=== PATIENT | male | born 1935 | race Hispanic/Latino ===

== ENCOUNTER 2017-05-18 11:25 | Day surgery (SDC) | payer MEDICARE ==
[2017-05-18 12:29] VITALS: BMI 32.5
[2017-05-18] MEDS ORDERED: Lidocaine 1% Inj (20ml) ONE (14:16)
--- NOTE | 2017-05-18 14:23 | CP.SDSHP ---
Same Day Surgery H & P - History Proposed Procedure: US guided paracentesis. Pre-Op Diagnosis: Ascites - Allergies Allergies: Allergies No Known Allergies Allergy (Verified 05/18/17 12:29) - Physical Exam Vital Signs: Vital Signs 05/18/17 12:15 Temperature 97.8 F Pulse Rate 79 Respiratory 20 Rate O2 Sat by Pulse 95 Oximetry Mental Status: Alert & Oriented x3 - Impression Impression: Pt with ascites referred for US guided paracentesis. Pt. Evaluated Today:Candidate for Anesthesia & Procedure: No - Date & Time Date: 05/18/17 Time: 14:20 Short Stay Discharge - Short Stay Discharge Admitting Diagnosis/Reason for Visit: ASCITES Referrals: Mo Way MD [Primary Care Provider] - Progress Note/Discharge Note with Instructions: s/p paracentesis. There were no complications.
--- NOTE | 2017-05-18 14:24 | PCM.SURG1 ---
Surgeon's Initial Post Op Note - Surgeon's Notes Surgeon: Evgeny Swann MD [employer] Department Manager: None Type of Anesthesia: Local Pre-Operative Diagnosis: Ascites Operative Findings: US showed a moderate amount of ascites Post-Operative Diagnosis: Ascites Operation Performed: US guided paracentesis. Specimen/Specimens Removed: 5.2 Liters of straw colored fluid Estimated Blood Loss: EBL {In ML}: 0 Blood Products Given: N/A Drains Used: No Drains Post-Op Condition: Good Date of Surgery/Procedure: 05/18/17 Time of Surgery/Procedure: 14:45
[2017-05-18 14:25] VITALS: RESP 18
[2017-05-18 15:11] VITALS: BP 149/91; PULSE 76; TEMP 98.2; O2SAT 97
--- NOTE | 2017-05-20 10:36 | US ---
Date of Procedure: 05/18/2017 PROCEDURE: Ultrasound-guided paracentesis, CPT 16198 Medications: 7 cc 1% Lidocaine HISTORY: Ascites, abdominal pain, cirrhosis TECHNIQUE: Following informed consent , the patient was placed supine on the stretcher and the site was marked. A limited abdominal ultrasound was performed that showed a large amount of intra-abdominal fluid. Procedural time out was called and the Pt's abdomen was marked and prepped and draped in the usual sterile fashion. Ultrasound-guided large volume paracentesis performed. A total of 8 liters of straw colored fluid was removed without complication. IMPRESSION: Ultrasound-guided large volume paracentesis.
== END 2017-05-18 15:50 | disposition home or self-care (01) ==
LOC: H.OPSURG 11:25
PROVIDERS: ATTEND Internal Medicine Gastroenterology
DX: R18.8 Other ascites (principal); K74.60 Unspecified cirrhosis of liver
CPT/HCPCS: 49083; 82948; C1729

== ENCOUNTER 2017-09-04 17:42 | Inpatient (IN) | payer MEDICARE ==
[2017-09-04 17:42] VITALS: BMI 32.5
[2017-09-04 19:07] LABS: PARTIAL THROMBOPLASTIN TIME 27.8 Seconds (25.6-37.1)
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
[2017-09-04 19:23] LABS: BASO # 0.2 K/uL (0.0-0.2); BASO % 1.3 % (0.0-2.0); EOS # 0.2 K/uL (0.0-0.7); EOS % 1.4 % (0.0-4.0); HEMATOCRIT 38.2 % (35.0-51.0); LYMPH # 2.1 K/uL (1.0-4.3); LYMPH % 14.6 % (20.0-40.0); MEAN CELL VOLUME 87.3 fl (80.0-94.0); MEAN CORPUSCULAR HEMOGLOBIN 28.6 pg (27.0-31.0); MEAN CORPUSCULAR HGB CONC 32.7 g/dL (33.0-37.0); MEAN PLATELET VOLUME 7.7 fl (7.2-11.7); MONO # 0.9 K/uL (0.0-0.8); MONO % 6.6 % (0.0-10.0); NEUT # 10.9 K/uL (1.8-7.0); NEUT % 76.1 % (50.0-75.0); RED CELL DISTRIBUTION WIDTH 15.5 % (11.5-14.5); WHITE BLOOD COUNT 14.2 K/uL (4.8-10.8)
--- NOTE | 2017-09-04 19:24 | ED PDOC ---
- Laboratory Results Result Diagrams: 09/04/17 19:19 09/04/17 19:19 - ECG O2 Sat by Pulse Oximetry: 99 (RA) Pulse Ox Interpretation: Normal Medical Decision Making Medical Decision Making: Time: 1899 --Patient was endorsed to provider by Dr. Regina Prasad. Pending reassessment. Time: 1999 --Labs: no clincial abnormality --CXR: no active disease noted --Discussed case with Dr. Shah, medical record assistant covering for Dr. Cavazos. --Patient placed on inpatient OBVS. Clinical Impression: Ascites; Dyspnea; COPD Scribe Attestation: Documented by Carey Ellsworth, acting as a scribe for Alfonso Garcia MD. Provider Scribe Attestation: All medical record entries made by the Scribe were at my direction and personally dictated by me. I have reviewed the chart and agree that the record accurately reflects my personal performance of the history, physical exam, medical decision making, and the department course for this patient. I have also personally directed, reviewed, and agree with the discharge instructions and disposition. Disposition Discussed With : Sanjana Ayon - Clinical Impression Clinical Impression: Ascites, COPD (chronic obstructive pulmonary disease), End stage liver disease - POA Present On Arrival: None - Disposition Disposition: Hospitalized as Observation Patient Disposition Time: 20:00 Condition: FAIR
[2017-09-04 19:37] LABS: ALB/GLOB RATIO 0.9 (1.0-2.1); ALKALINE PHOSPHATASE 238 U/L (38-126); ALT/SGPT 26 U/L (21-72); AST/SGOT 22 U/L (17-59); BILIRUBIN,TOTAL 0.4 mg/dl (0.2-1.3); BLOOD UREA NITROGEN 11 mg/dl (9-20); CALCIUM 8.9 mg/dL (8.4-10.2); CARBON DIOXIDE 28 mmol/L (22-30); CHLORIDE 99 mmol/L (98-107); GFR AFRICAN-AMERICAN > 60; GLUCOSE,RANDOM 363 mg/dL (75-110); POTASSIUM 4.2 MMOL/L (3.6-5.0); SODIUM 135 mmol/l (132-148); TOTAL PROTEIN 7.5 G/DL (6.3-8.2)
[2017-09-04] MEDS ORDERED: Glucagon Recombinant 1 mg Inj IM PRN (22:05)
[2017-09-04] MEDS ORDERED: Dextrose 50% SYRINGE Inj (50 ml) IV PRN (22:05)
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
[2017-09-04] MEDS ORDERED: Insulin Regular 100 units/ml ONE (22:57)
[2017-09-04] MEDS: Insulin Detemir 100 Units/ml Inj SC SCH (23:14)
[2017-09-04] MEDS: Fluticasone-Salmeterol 250-50mcg Diskus IH SCH (23:17)
[2017-09-05 07:16] LABS: BASO # 0.2 K/uL (0.0-0.2); BASO % 1.5 % (0.0-2.0); EOS # 0.2 K/uL (0.0-0.7); EOS % 1.4 % (0.0-4.0); HEMATOCRIT 37.3 % (35.0-51.0); LYMPH # 1.9 K/uL (1.0-4.3); LYMPH % 14.8 % (20.0-40.0); MEAN CELL VOLUME 86.5 fl (80.0-94.0); MEAN CORPUSCULAR HGB CONC 32.3 g/dL (33.0-37.0); MEAN PLATELET VOLUME 8.7 fl (7.2-11.7); MONO # 0.7 K/uL (0.0-0.8); MONO % 5.4 % (0.0-10.0); NEUT # 9.8 K/uL (1.8-7.0); NEUT % 76.9 % (50.0-75.0); NRBC % 0.1 % (0.0-0.0); RED CELL DISTRIBUTION WIDTH 14.9 % (11.5-14.5); WHITE BLOOD COUNT 12.8 K/uL (4.8-10.8)
[2017-09-05 07:31] LABS: BLOOD UREA NITROGEN 10 mg/dl (9-20); CALCIUM 8.5 mg/dL (8.4-10.2); CARBON DIOXIDE 31 mmol/L (22-30); CHLORIDE 98 mmol/L (98-107); GFR AFRICAN-AMERICAN > 60; GLUCOSE,RANDOM 274 mg/dL (75-110); POTASSIUM 3.7 MMOL/L (3.6-5.0); SODIUM 137 mmol/l (132-148)
[2017-09-05 07:53] LABS: URINE BILIRUBIN NEGATIVE (NEGATIVE); URINE BLOOD NEGATIVE (NEGATIVE); URINE COLOR COLORLESS (YELLOW); URINE GLUCOSE (UA) 50 mg/dL (Normal); URINE KETONE NEGATIVE (NEGATIVE); URINE LEUKOCYTE ESTERASE NEG Leu/uL (Negative); URINE PROTEIN NEGATIVE (NEGATIVE); URINE UROBILINOGEN 0.2-1.0 mg/dL (0.2-1.0); WBC URINE < 1 /hpf (0-5)
[2017-09-05] MEDS ORDERED: Enoxaparin 40 mg Syringe SC SCH (09:00)
[2017-09-05] MEDS: Insulin Regular 100 units/ml SC SCH ×4 (09:30→21:27)
[2017-09-05] MEDS: Fluticasone-Salmeterol 250-50mcg Diskus IH SCH ×2 (09:42→21:18)
[2017-09-05] MEDS: Insulin Detemir 100 Units/ml Inj SC SCH ×2 (09:44→14:27)
[2017-09-05] MEDS ORDERED: Albuterol-Ipratrop 3 mg / 0.5 (3 ml) UD INH STA (12:18)
--- NOTE | 2017-09-05 12:28 | CP.PCM.PN ---
Subjective - Date & Time of Evaluation Date of Evaluation: 09/05/17 Time of Evaluation: 11:20 - Subjective Subjective: 81 y/o M admitted for ascitis and SOB, seen at bedside in good spirits. He states he stopped taking his meds about 1 month ago. C/O SOB that has been progressively worsening and increased of abdominal girth, fatigue with exertion and orthopnea. Denies CP, palpitations, headache, abd pain, nausea or vomiting. Afebrile. Objective - Vital Signs/Intake and Output Vital Signs (last 24 hours): Temp Pulse Resp BP Pulse Ox 98.7 F 84 20 143/87 93 L 09/05/17 07:43 09/05/17 07:43 09/05/17 07:43 09/05/17 09:43 09/05/17 07:43 - Medications Medications: Current Medications Dextrose (Dextrose 50% Inj) 0 ml IV STAT PRN; Protocol PRN Reason: Hypoglycemia Protocol Dextrose (Glutose 15) 0 gm PO ONCE PRN; Protocol PRN Reason: Hypoglycemia Protocol Enoxaparin Sodium (Lovenox) 40 mg SC DAILY [facility] PRN Reason: Protocol Furosemide (Lasix) 40 mg PO DAILY [facility] Last Admin: 09/05/17 09:43 Dose: 40 mg Glucagon (Glucagen Diagnostic Kit) 0 mg IM STAT PRN; Protocol PRN Reason: Hypoglycemia Protocol Home Med (Dutasteride [Avodart]) 0.5 mg PO DAILY [facility] Insulin Detemir (Levemir) 8 units SC Q12H [facility] Last Admin: 09/05/17 09:44 Dose: 8 units Insulin Human Regular (Humulin R) 0 units SC ACHS [facility] PRN Reason: Protocol Last Admin: 09/05/17 09:30 Dose: Not Given Fluticasone/Salmeterol (Advair Diskus 250/50) 1 puff IH Q12 [facility] Last Admin: 09/05/17 09:42 Dose: 1 puff Spironolactone (Aldactone) 100 mg PO DAILY [facility] Last Admin: 09/05/17 09:43 Dose: 100 mg - Labs Labs: 09/05/17 05:30 09/05/17 06:30 PT 12.5 Seconds (9.8-13.1) 09/04/17 18:45 INR 1.1 (0.9-1.2) 09/04/17 18:45 APTT 27.8 Seconds (25.6-37.1) 09/04/17 18:45 - Constitutional Appears: Non-toxic - Eye Exam Eye Exam: EOMI - ENT Exam ENT Exam: Mucous Membranes Moist - Respiratory Exam Respiratory Exam: Wheezes (scattered diffuse wheezes ). absent: Accessory Muscle Use, Rales, Respiratory Distress - Cardiovascular Exam Cardiovascular Exam: REGULAR RHYTHM, +S1, +S2. absent: Gallop - GI/Abdominal Exam GI & Abdominal Exam: Distended, Normal Bowel Sounds. absent: Guarding, Tenderness, Rebound Additional comments: Increased abd girth. Increased skin vascularity. - Extremities Exam Extremities Exam: absent: Calf Tenderness, Pedal Edema - Neurological Exam Neurological Exam: Alert, Awake, Oriented x3 - Psychiatric Exam Psychiatric exam: Normal Affect, Normal Mood - Skin Skin Exam: Normal Color, Warm Assessment and Plan - Assessment and Plan (Free Text) Assessment: 81 y/o M with h/o Liver Cirrhosis, Ascitis, COPD, DM II being admitted with Ascitis and dyspnea. Ascites -Likely cirrhosis decompensation due to treatment noncompliant -SBP unlikely: Afebrile, no abd pain -WBC trending down -check I&O -measure weight daily -F/U abdominal US -C/W Furosemide 40 mg PO daily and Spironolactone 100 mg PO daily -GI consult appreciated, Dr. Marquez -IR consult appreciated for possible Paracentesis -Last peritoneal fluid analysis in 12/05/16: WBC 206 COPD exacerbation -Diffuse wheezes -SOB. CXR no active disease -Duoneb stat and q6h PRN -Advair diskus q12h Leukocytosis, mild -Unclear etiology -Improved -afebrile, no evidence of SBP at PExam -will monitor IDDM type II uncontrolled -f/u HgbA1C -Increased levemir 10 units BID -LDSS Regular insulin -accucheck ACHS -hypoglycemic protocol -diabetic diet DVT prophylaxis SCDs Lovenox 40 mg SC
--- NOTE | 2017-09-05 13:25 | RAD ---
PROCEDURE: CHEST RADIOGRAPH, 1 VIEW HISTORY: SOB COMPARISON: Comparison made with prior chest radiograph 12/03/2016. FINDINGS: LUNGS: Clear. PLEURA: No pneumothorax or pleural fluid seen. CARDIOVASCULAR: Heart size upper limits of normal. Aorta slightly ectatic and uncoiled. OSSEOUS STRUCTURES: No significant abnormalities. VISUALIZED UPPER ABDOMEN: Normal. OTHER FINDINGS: None. IMPRESSION: No active disease.
[2017-09-05] MEDS ORDERED: Albuterol-Ipratrop 3 mg / 0.5 (3 ml) UD INH PRN (14:33)
--- NOTE | 2017-09-05 17:04 | US ---
HISTORY: ascitis/Liver cirrhosis COMPARISON: Comparison made with CT scan of the abdomen and pelvis dated 12/04/2016. TECHNIQUE: Sonographic evaluation of the abdomen. FINDINGS: LIVER: Measures approximately 17 cm. Liver demonstrates nodular surface and heterogeneous echotexture suggesting hepatic cirrhosis. Small cyst again seen superior aspect right lobe liver measuring 1.3 cm in greatest diameter. Bidirectional flow within the portal vein Large amount of abdominal ascites present. GALLBLADDER: Gallbladder is physiologically distended. . No gallstones. No sonographic Reeder sign COMMON BILE DUCT: Measures 3 mm. No stones. No dilatation. PANCREAS: Poorly seen due to abdominal ascites RIGHT KIDNEY: Measures approximately 11.4 x 6.4 x 6.5cm. Normal echogenicity. No calculus, mass, or hydronephrosis. LEFT KIDNEY: Measures approximately 11.6 x 5.3 x 3.8cm. Normal echogenicity. No calculus, mass, or hydronephrosis. SPLEEN: Normal in size and contour. No mass. AORTA: Poorly seen due to abdominal ascites IVC: Poorly seen due to abdominal ascites. OTHER FINDINGS: None. IMPRESSION: Findings consistent with hepatic cirrhosis and large amount of abdominal ascites as detailed above. .
[2017-09-05] MEDS: Enoxaparin 40 mg Syringe SC SCH (21:16)
[2017-09-06] MEDS: Insulin Detemir 100 Units/ml Inj SC SCH ×2 (02:46→15:13)
[2017-09-06 06:58] LABS: BASO # 0.2 K/uL (0.0-0.2); BASO % 1.2 % (0.0-2.0); EOS # 0.1 K/uL (0.0-0.7); HEMATOCRIT 35.1 % (35.0-51.0); LYMPH # 2.1 K/uL (1.0-4.3); LYMPH % 15.9 % (20.0-40.0); MEAN CELL VOLUME 86.3 fl (80.0-94.0); MEAN CORPUSCULAR HEMOGLOBIN 28.6 pg (27.0-31.0); MEAN CORPUSCULAR HGB CONC 33.1 g/dL (33.0-37.0); MEAN PLATELET VOLUME 8.4 fl (7.2-11.7); MONO # 0.8 K/uL (0.0-0.8); MONO % 6.2 % (0.0-10.0); NEUT # 10.2 K/uL (1.8-7.0); NEUT % 75.7 % (50.0-75.0); RED CELL DISTRIBUTION WIDTH 14.9 % (11.5-14.5); WHITE BLOOD COUNT 13.4 K/uL (4.8-10.8)
[2017-09-06] MEDS: Insulin Regular 100 units/ml SC SCH ×4 (08:30→22:13)
[2017-09-06] MEDS: Enoxaparin 40 mg Syringe SC SCH (08:52)
[2017-09-06] MEDS: Fluticasone-Salmeterol 250-50mcg Diskus IH SCH ×2 (09:00→20:58)
--- NOTE | 2017-09-06 14:37 | CP.PCM.PN ---
Subjective - Date & Time of Evaluation Date of Evaluation: 09/06/17 Time of Evaluation: 10:00 - Subjective Subjective: Patient seen and examined at bedside with attending during morning rounds. He is lying in bed on his side and reports slight improvement in his dyspnea. He has been urinating frequently since resuming his diuretics and has noted slight improvement in his lower extremity edema and ascites. Patient does remain dyspneic however. He denies fevers, chills, chest pain, abdominal pain or vomiting. Objective - Vital Signs/Intake and Output Vital Signs (last 24 hours): Temp Pulse Resp BP Pulse Ox 98.2 F 78 20 134/71 89 L 09/06/17 07:38 09/06/17 07:38 09/06/17 07:38 09/06/17 08:52 09/06/17 07:38 - Medications Medications: Current Medications Albuterol/Ipratropium (Duoneb 3 Mg/0.5 Mg (3 Ml) Ud) 3 ml INH RQ6 PRN PRN Reason: Shortness of Breath Last Admin: 09/06/17 02:55 Dose: 3 ml Dextrose (Dextrose 50% Inj) 0 ml IV STAT PRN; Protocol PRN Reason: Hypoglycemia Protocol Dextrose (Glutose 15) 0 gm PO ONCE PRN; Protocol PRN Reason: Hypoglycemia Protocol Enoxaparin Sodium (Lovenox) 40 mg SC DAILY [facility] PRN Reason: Protocol Last Admin: 09/06/17 08:52 Dose: 40 mg Furosemide (Lasix) 40 mg PO DAILY [facility] Last Admin: 09/06/17 08:52 Dose: 40 mg Glucagon (Glucagen Diagnostic Kit) 0 mg IM STAT PRN; Protocol PRN Reason: Hypoglycemia Protocol Home Med (Dutasteride [Avodart]) 0.5 mg PO DAILY [facility] Insulin Detemir (Levemir) 10 units SC Q12H [facility] Last Admin: 09/06/17 02:46 Dose: 10 unit Insulin Human Regular (Humulin R) 0 units SC ACHS [facility] PRN Reason: Protocol Last Admin: 09/06/17 12:05 Dose: 5 units Fluticasone/Salmeterol (Advair Diskus 250/50) 1 puff IH Q12 [facility] Last Admin: 09/06/17 09:00 Dose: 1 puff Spironolactone (Aldactone) 100 mg PO DAILY [facility] Last Admin: 09/06/17 08:52 Dose: 100 mg - Labs Labs: 09/06/17 05:30 09/05/17 06:30 PT 12.5 Seconds (9.8-13.1) 09/04/17 18:45 INR 1.1 (0.9-1.2) 09/04/17 18:45 APTT 27.8 Seconds (25.6-37.1) 09/04/17 18:45 - Constitutional Appears: Non-toxic, No Acute Distress - Head Exam Head Exam: ATRAUMATIC, NORMAL INSPECTION - Eye Exam Eye Exam: EOMI, PERRL - ENT Exam ENT Exam: Mucous Membranes Moist - Respiratory Exam Respiratory Exam: Clear to Ausculation Bilateral, NORMAL BREATHING PATTERN. absent: Rales, Rhonchi, Wheezes, Respiratory Distress - Cardiovascular Exam Cardiovascular Exam: REGULAR RHYTHM, RRR, +S1, +S2, Murmur (Systolic grade II murmur) - GI/Abdominal Exam GI & Abdominal Exam: Distended, Soft, Normal Bowel Sounds. absent: Tenderness, Rebound Additional comments: Prominent abdominal ascites. Visible, non-distended veins on abdomen. - Extremities Exam Extremities Exam: Normal Capillary Refill. 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 Plan: Cirrhosis with Ascites -Likely decompensation secondary to medication non-adherence -SOB still present but improved from prior assessment -WBC trending down -Monitor I/O and continue daily weights -Continue Furosemide 40mg PO daily and Spironolactone 100mg PO daily -GI consult appreciated, Dr. Marquez -IR consult appreciated. Discussed with IR for planned paracentesis tomorrow. -Will perform peritoneal fluid analysis (Last performed 12/05/16: WBC 206) -INR: 1.1 COPD, chronic -Likely not acute exacerbation -CXR revealed no active pulmonary disease -Duonebs Q6h PRN -Advair discus q12h [facility] Leukocytosis, mild -Unclear etiology -Stable -Afebrile, no evidence of SBP based on physical exam -Will continue to monitor IDDM2, with hyperglycemia -Uncontrolled -HgbA1C: 10.0% this admission -Levemir increased from 8units SC BID to 10 units BID -Will monitor and increase as needed -LDSS -Accucheck ACHS -Hypoglycemic protocol DVT prophylaxis -Lovenox 40mg SC daily -SCDs
[2017-09-06] MEDS ORDERED: Insulin Detemir 100 Units/ml Inj SC SCH (18:15)
--- NOTE | 2017-09-06 21:22 | CARD ---
APPROVED REPORT EKG Measurement Heart [id number] <Conclusion> Sinus rhythm with occasional premature ventricular complexes Otherwise normal ECG
--- NOTE | 2017-09-06 23:53 | CON ---
DATE: 09/06/2017 09/06/2017 REFERRING PROVIDER: Mo Way MD REASON FOR CONSULTATION: Ascites. HISTORY OF PRESENT ILLNESS: This is a pleasant 81-year-old man known to my office in service. He has a history of cirrhosis, diabetes, COPD, anxiety, who states he went off his diuretics and now comes in with ascites and worsening abdominal pain, discomfort, distention as well as shortness of breath. The patient has no fever or chills, nausea, vomiting, no weight loss, some weight gain, social drinking. Currently lying in bed comfortable, in no apparent distress. PAST MEDICAL HISTORY: As above. PAST SURGICAL HISTORY: As above. MEDICATIONS: Reviewed. REVIEW OF SYSTEMS: All other systems have been reviewed and are negative apart from the HPI. PHYSICAL EXAMINATION GENERAL: This is a pleasant elderly-appearing male, lying in bed comfortable, in no apparent distress. VITAL SIGNS: In the hospital are grossly unremarkable. HEENT: Head is normocephalic, atraumatic. Eyes, pupils are equally reactive to light bilaterally. No conjunctival pallor or icterus. NECK: Supple. Normal range of motion. No lymphadenopathy appreciated. LUNGS: Coarse breath sounds bilaterally. HEART: S1, S2, regular rate and rhythm. No murmur appreciated. ABDOMEN: Soft, distended, present. No rebound, no guarding. RECTAL: Deferred. EXTREMITIES: Pulses felt bilaterally. SKIN: Warm, dry, and intact. NEUROLOGIC: A and O x3. LABORATORY DATA: Have been reviewed. WBC is 13.4, hemoglobin 11.6, hematocrit 35, platelet count is 319, INR 1.1. Sugar is 239, hemoglobin A1c is 10, alk phos 238. Ultrasound shows a large ascites. ASSESSMENT AND PLAN: This is an 81-year-old man, noncompliant with medications for diuretics. The patient is on diuretics at this point and will plan for paracentesis in the morning. We will follow the patient with you. Thank you for the consult. Maurizio Marquez MD/ PhD cc: Mo Way MD
[2017-09-07] MEDS: Insulin Regular 100 units/ml SC SCH (08:00)
[2017-09-07] MEDS: Enoxaparin 40 mg Syringe SC SCH (08:44)
[2017-09-07] MEDS: Fluticasone-Salmeterol 250-50mcg Diskus IH SCH (09:07)
[2017-09-07 14:49] VITALS: O2SAT 99
[2017-09-07] MEDS ORDERED: Lidocaine 1% Inj (20ml) ONE (15:31)
[2017-09-07 15:35] VITALS: BP 155/86; PULSE 101; RESP 18; TEMP 97.8
--- NOTE | 2017-09-07 17:30 | CP.PCM.DIS ---
<Spencer Andrea - Last Filed: 09/08/17 07:44> Provider - Provider Date of Admission: 09/05/17 13:57 Attending physician: Mo Way MD Primary care physician: Dr Way Consults: MARY MULLER Time Spent in preparation of Discharge (in minutes): 35 Diagnosis - Discharge Diagnosis (1) Ascites Status: Chronic Priority: High Comment: Improved. Due to Liver Cirrhosis and med noncompliance (2) COPD exacerbation Status: Chronic Priority: High Comment: Improved. C/W home meds (3) Diabetes Status: Chronic Comment: Improved. Increased Levemir to 10 unit BID Hospital Course - Lab Results Lab Results: Most Recent Lab Values WBC 13.4 K/uL (4.8-10.8) H 09/06/17 05:30 RBC 4.07 Mil/uL (4.40-5.90) L 09/06/17 05:30 Hgb 11.6 g/dL (12.0-18.0) L 09/06/17 05:30 Hct 35.1 % (35.0-51.0) 09/06/17 05:30 MCV 86.3 fl (80.0-94.0) 09/06/17 05:30 MCH 28.6 pg (27.0-31.0) 09/06/17 05:30 MCHC 33.1 g/dL (33.0-37.0) 09/06/17 05:30 RDW 14.9 % (11.5-14.5) H 09/06/17 05:30 Plt Count 319 K/uL (130-400) 09/06/17 05:30 MPV 8.4 fl (7.2-11.7) 09/06/17 05:30 Neut % (Auto) 75.7 % (50.0-75.0) H 09/06/17 05:30 Lymph % (Auto) 15.9 % (20.0-40.0) L 09/06/17 05:30 [place] % (Auto) 6.2 % (0.0-10.0) 09/06/17 05:30 Eos % (Auto) 1.0 % (0.0-4.0) 09/06/17 05:30 Baso % (Auto) 1.2 % (0.0-2.0) 09/06/17 05:30 Neut # 10.2 K/uL (1.8-7.0) H 09/06/17 05:30 Lymph # 2.1 K/uL (1.0-4.3) 09/06/17 05:30 [place] # 0.8 K/uL (0.0-0.8) 09/06/17 05:30 Eos # 0.1 K/uL (0.0-0.7) 09/06/17 05:30 Baso # 0.2 K/uL (0.0-0.2) 09/06/17 05:30 PT 12.5 Seconds (9.8-13.1) 09/04/17 18:45 INR 1.1 (0.9-1.2) 09/04/17 18:45 APTT 27.8 Seconds (25.6-37.1) 09/04/17 18:45 Sodium 137 mmol/l (132-148) 09/05/17 06:30 Potassium 3.7 MMOL/L (3.6-5.0) 09/05/17 06:30 Chloride 98 mmol/L (98-107) 09/05/17 06:30 Carbon Dioxide 31 mmol/L (22-30) H 09/05/17 06:30 Anion Gap 12 (10-20) 09/05/17 06:30 BUN 10 mg/dl (9-20) 09/05/17 06:30 Creatinine 0.8 mg/dL (0.8-1.5) 09/05/17 06:30 Est GFR ( Amer) > 60 09/05/17 06:30 Est GFR (Non-Af Amer) > 60 09/05/17 06:30 POC Glucose (mg/dL) 184 mg/dL (65-110) H 09/07/17 11:01 Random Glucose 274 mg/dL (75-110) H 09/05/17 06:30 Hemoglobin A1c 10.0 % (4.2-6.5) H 09/05/17 05:30 Calcium 8.5 mg/dL (8.4-10.2) 09/05/17 06:30 Total Bilirubin 0.4 mg/dl (0.2-1.3) 09/04/17 19:19 AST 22 U/L (17-59) 09/04/17 19:19 ALT 26 U/L (21-72) 09/04/17 19:19 Alkaline Phosphatase 238 U/L (38-126) H 09/04/17 19:19 Troponin I 0.0690 ng/mL (0.00-0.120) 09/04/17 19:19 NT-Pro-B Natriuret Pep 422 pg/ml (0-900) 09/04/17 19:19 Total Protein 7.5 G/DL (6.3-8.2) 09/04/17 19:19 Albumin 3.5 g/dL (3.5-5.0) 09/04/17 19:19 Globulin 4.0 gm/dL (2.2-3.9) H 09/04/17 19:19 Albumin/Globulin Ratio 0.9 (1.0-2.1) L 09/04/17 19:19 Procalcitonin 0.08 NG/ML (0.19-0.49) L 09/04/17 05:30 Urine Color Colorless (YELLOW) 09/05/17 07:00 Urine Clarity Clear (Clear) 09/05/17 07:00 Urine pH 6.0 (5.0-8.0) 09/05/17 07:00 Ur Specific [place] 1.005 (1.003-1.030) 09/05/17 07:00 Urine Protein Negative mg/dL (NEGATIVE) 09/05/17 07:00 Urine Glucose (UA) 50 mg/dL (Normal) 09/05/17 07:00 Urine Ketones Negative mg/dL (NEGATIVE) 09/05/17 07:00 Urine Blood Negative (NEGATIVE) 09/05/17 07:00 Urine Nitrate Negative (NEGATIVE) 09/05/17 07:00 Urine Bilirubin Negative (NEGATIVE) 09/05/17 07:00 Urine Urobilinogen 0.2-1.0 mg/dL (0.2-1.0) 09/05/17 07:00 Ur Leukocyte Esterase Neg Carrie/uL (Negative) 09/05/17 07:00 Urine Microscopic WBC < 1 /hpf (0-5) 09/05/17 07:00 - Hospital Course Hospital Course: 81 y/o M with Hx of Liver cirrhosis, COPD and DM presented to ED at [facility] c/o increased abd girth and SOB. He admitted stop taking all his meds about 1 month ago including diuretics. He was also c/o SOB and sporadic cough. While in the hospital home meds were restarted, he was given duonebs nebs PRN for SOB and home insulin dose was slightly increased due to hyperglycemia. Patient responded well to medical treatment and Today BS were more controlled, SOB resolved and he successfully underwent therapeutic paracentesis. Fluid was send for analysis and patient is being discharge home to f/u as outpatient. Discharge Exam - Head Exam Head Exam: ATRAUMATIC, NORMAL INSPECTION, NORMOCEPHALIC - Eye Exam Eye Exam: PERRL - ENT Exam ENT Exam: Mucous Membranes Moist - Respiratory Exam Respiratory Exam: Clear to PA & Lateral, NORMAL BREATHING PATTERN. absent: Rales, Wheezes, Respiratory Distress - Cardiovascular Exam Cardiovascular Exam: REGULAR RHYTHM, +S1, +S2. absent: Gallop - GI/Abdominal Exam GI & Abdominal Exam: Distended, Normal Bowel Sounds, Soft. absent: Guarding, Rebound, Tenderness Additional comments: AScitis - Extremities Exam Extremities exam: normal capillary refill - Neurological Exam Neurological exam: Alert, Oriented x3 - Psychiatric Exam Psychiatric exam: Normal Affect, Normal Mood - Skin Skin Exam: Normal Color, Warm Discharge Plan - Follow Up Plan Condition: STABLE Disposition: HOME/ ROUTINE Patient education suggested?: Yes Instructions: Abdominal Paracentesis (DC), Ascites (DC) Additional Instructions: Increase dose of Levemir to 10 units BID and monitor accuchecks Continue home meds as prescribed F/U with Dr Way within 1 week F/U with GI Dr Marquez as outpatient Referrals: Mo Way MD [Family Provider] - Maurizio Marquez MD, PhD [Staff Provider] - <Mo Way - Last Filed: 09/09/17 06:50> Provider - Provider Date of Admission: 09/05/17 13:57 Attending physician: Mo Way MD Hospital Course - Lab Results Lab Results: Micro Results 09/07/17 16:57 Ascitic Fluid Gram Stain - Final 09/07/17 16:57 Ascitic Fluid Body Fluid Culture - Preliminary NO GROWTH AFTER 24 HOURS Most Recent Lab Values WBC 13.4 K/uL (4.8-10.8) H 09/06/17 05:30 RBC 4.07 Mil/uL (4.40-5.90) L 09/06/17 05:30 Hgb 11.6 g/dL (12.0-18.0) L 09/06/17 05:30 Hct 35.1 % (35.0-51.0) 09/06/17 05:30 MCV 86.3 fl (80.0-94.0) 09/06/17 05:30 MCH 28.6 pg (27.0-31.0) 09/06/17 05:30 MCHC 33.1 g/dL (33.0-37.0) 09/06/17 05:30 RDW 14.9 % (11.5-14.5) H 09/06/17 05:30 Plt Count 319 K/uL (130-400) 09/06/17 05:30 MPV 8.4 fl (7.2-11.7) 09/06/17 05:30 Neut % (Auto) 75.7 % (50.0-75.0) H 09/06/17 05:30 Lymph % (Auto) 15.9 % (20.0-40.0) L 09/06/17 05:30 [place] % (Auto) 6.2 % (0.0-10.0) 09/06/17 05:30 Eos % (Auto) 1.0 % (0.0-4.0) 09/06/17 05:30 Baso % (Auto) 1.2 % (0.0-2.0) 09/06/17 05:30 Neut # 10.2 K/uL (1.8-7.0) H 09/06/17 05:30 Lymph # 2.1 K/uL (1.0-4.3) 09/06/17 05:30 [place] # 0.8 K/uL (0.0-0.8) 09/06/17 05:30 Eos # 0.1 K/uL (0.0-0.7) 09/06/17 05:30 Baso # 0.2 K/uL (0.0-0.2) 09/06/17 05:30 PT 12.5 Seconds (9.8-13.1) 09/04/17 18:45 INR 1.1 (0.9-1.2) 09/04/17 18:45 APTT 27.8 Seconds (25.6-37.1) 09/04/17 18:45 Sodium 137 mmol/l (132-148) 09/05/17 06:30 Potassium 3.7 MMOL/L (3.6-5.0) 09/05/17 06:30 Chloride 98 mmol/L (98-107) 09/05/17 06:30 Carbon Dioxide 31 mmol/L (22-30) H 09/05/17 06:30 Anion Gap 12 (10-20) 09/05/17 06:30 BUN 10 mg/dl (9-20) 09/05/17 06:30 Creatinine 0.8 mg/dL (0.8-1.5) 09/05/17 06:30 Est GFR ( Amer) > 60 09/05/17 06:30 Est GFR (Non-Af Amer) > 60 09/05/17 06:30 POC Glucose (mg/dL) 184 mg/dL (65-110) H 09/07/17 11:01 Random Glucose 274 mg/dL (75-110) H 09/05/17 06:30 Hemoglobin A1c 10.0 % (4.2-6.5) H 09/05/17 05:30 Calcium 8.5 mg/dL (8.4-10.2) 09/05/17 06:30 Total Bilirubin 0.4 mg/dl (0.2-1.3) 09/04/17 19:19 AST 22 U/L (17-59) 09/04/17 19:19 ALT 26 U/L (21-72) 09/04/17 19:19 Alkaline Phosphatase 238 U/L (38-126) H 09/04/17 19:19 Troponin I 0.0690 ng/mL (0.00-0.120) 09/04/17 19:19 NT-Pro-B Natriuret Pep 422 pg/ml (0-900) 09/04/17 19:19 Total Protein 7.5 G/DL (6.3-8.2) 09/04/17 19:19 Albumin 3.5 g/dL (3.5-5.0) 09/04/17 19:19 Globulin 4.0 gm/dL (2.2-3.9) H 09/04/17 19:19 Albumin/Globulin Ratio 0.9 (1.0-2.1) L 09/04/17 19:19 Procalcitonin 0.08 NG/ML (0.19-0.49) L 09/04/17 05:30 Urine Color Colorless (YELLOW) 09/05/17 07:00 Urine Clarity Clear (Clear) 09/05/17 07:00 Urine pH 6.0 (5.0-8.0) 09/05/17 07:00 Ur Specific [place] 1.005 (1.003-1.030) 09/05/17 07:00 Urine Protein Negative mg/dL (NEGATIVE) 09/05/17 07:00 Urine Glucose (UA) 50 mg/dL (Normal) 09/05/17 07:00 Urine Ketones Negative mg/dL (NEGATIVE) 09/05/17 07:00 Urine Blood Negative (NEGATIVE) 09/05/17 07:00 Urine Nitrate Negative (NEGATIVE) 09/05/17 07:00 Urine Bilirubin Negative (NEGATIVE) 09/05/17 07:00 Urine Urobilinogen 0.2-1.0 mg/dL (0.2-1.0) 09/05/17 07:00 Ur Leukocyte Esterase Neg Carrie/uL (Negative) 09/05/17 07:00 Urine Microscopic WBC < 1 /hpf (0-5) 09/05/17 07:00 Fluid Source Peritoneal/ascites 09/07/17 17:30 Fluid Appearance Sl cloudy (CLEAR) 09/07/17 17:30 Fluid WBC 284.0 /mm3 (0.0-300.0) 09/07/17 17:30 Fluid RBC 319.0 /mm3 (0.0-0.0) H 09/07/17 17:30 Fluid Tot Cell Count 100 (0-0) H 09/07/17 17:30 Fluid Neutrophils 0.0 % (0-0) 09/07/17 17:30 Fluid Lymphocytes 85.0 % (0-0) H 09/07/17 17:30 Fld Monocyte/Macrophag 15 % (0-0) H 09/07/17 17:30 Fluid Comment Yellow 09/07/17 17:30 Attending/Attestation - Attestation I have personally seen and examined this patient.: Yes I have fully participated in the care of the patient.: Yes I have reviewed all pertinent clinical information, including history, physical exam and plan: Yes
[2017-09-07 17:40] LABS: BODY FLUID TYPE PERITONEAL/ASCITES
[2017-09-07 18:27] LABS: BF GROSS APPEARANCE SL CLOUDY (CLEAR)
[2017-09-07 18:36] LABS: BODY FLUID TOTAL COUNT 100 (0-0)
--- NOTE | 2017-09-08 14:23 | US ---
PROCEDURE: ULTRASOUND-GUIDED PARACENTESIS CLINICAL HISTORY: Listen 81-year-old male with cirrhosis and recurrent symptomatic ascites is referred to Interventional Radiology for ultrasound-guided paracentesis. COMPARISON: Ultrasound-guided paracentesis performed. PROCEDURE: 1. Ultrasound-guided paracentesis. PRE-PROCEDURE FINDINGS: 1. Large volume ascites. POST-PROCEDURE FINDINGS: 1. No evidence of post-procedural complication. INTERVENTIONAL RADIOLOGIST: Jamshid Forman M.D. (the attending was present for the entire procedure.) ANESTHESIA: None. MEDICATION: Lidocaine 1% for local subcutaneous analgesia. COMPLICATIONS: None. PROCEDURE DESCRIPTION AND FINDINGS: The risks, benefits, alternatives and possible complications of the procedure were fully discussed; all questions were answered and informed consent was obtained. The patient was brought into the interventional suite and a pre-procedure 'time-out' was performed. The patient was placed on the fluoroscopy table in the supine position. Preliminary ultrasound images of the right lower quadrant demonstrate a large amount of ascites. The right lower quadrant was prepped and draped in the usual sterile fashion. Maximum sterile barrier precautions were maintained throughout the entire procedure. Following subcutaneous infiltration of lidocaine 1% for local analgesia, under real-time ultrasound guidance, a 6 Amharic centesis catheter was advanced into the right lower quadrant with real-time visualization of needle entry. The ultrasound images were permanently recorded and submitted to the PACS. The inner stylet was removed and the catheter was attached to gentle vacuum suction. A total of 9.8 liters of straw-colored fluid were aspirated. A sample was sent to the laboratory for analysis. The drainage catheter was then removed. A sterile adhesive bandage was placed over the puncture site. The patient tolerated the procedure well without immediate post-procedure complications and was transferred back to the floor in stable condition. IMPRESSION: SUCCESSFUL ULTRASOUND-GUIDED DIAGNOSTIC AND THERAPEUTIC PARACENTESIS.
== END 2017-09-07 18:05 | disposition home or self-care (01) | DRG 433 ==
LOC: H.ER 17:42 → H.EROBSV 20:11 → H.ERHOLD 20:29 → H.MEDSURG1 09-05 01:30 → OBSVTOIN 09-05 13:57
PROVIDERS: ADMIT Family Medicine; ATTEND Family Medicine
PROC: 0W9G30Z Drainage of Peritoneal Cavity with Drainage Device, Percutaneous Approach (ICD-10-PCS; principal; 2017-09-04)
DX: K70.31 Alcoholic cirrhosis of liver with ascites (principal); J44.1 Chronic obstructive pulmonary disease with (acute) exacerbation; K72.90 Hepatic failure, unspecified without coma; E11.65 Type 2 diabetes mellitus with hyperglycemia; Z91.14 Patient's other noncompliance with medication regimen; Z91.19 Patient's noncompliance with other medical treatment and regimen; G47.33 Obstructive sleep apnea (adult) (pediatric); E78.5 Hyperlipidemia, unspecified; F10.10 Alcohol abuse, uncomplicated; N40.0 Benign prostatic hyperplasia without lower urinary tract symptoms; F41.9 Anxiety disorder, unspecified; D72.829 Elevated white blood cell count, unspecified; F17.210 Nicotine dependence, cigarettes, uncomplicated; Z79.4 Long term (current) use of insulin